=== PATIENT | male | born 1980 | race African-American/Black ===

== ENCOUNTER 2021-01-29 18:13 | Emergency (ER) | payer MEDICAID ==
[~2021-01-29] VITALS: Ht 180.3 cm; Wt 75.0 kg
[2021-01-29] MEDS ORDERED: ONDANSETRON HCL 4MG/2ML INJ IV STA (21:31)
[2021-01-29] MEDS ORDERED: MORPHINE SULFATE 4 MG/ML CPJ (NOT FOR IM USE) IV STA ×2 (21:31→22:57)
[2021-01-29 22:18] LABS: BASOPHILS % 0.5 % (0.0-2.0); EOSINOPHILS % 1.2 % (0.0-5.0); HEMATOCRIT. 35.5 % (42.0-52.0); HEMOGLOBIN. 11.6 g/dL (14.0-18.0); MEAN CORPUSCULAR HEMOGLOBIN 26.1 pg (28.0-32.0); MEAN CORPUSCULAR VOLUME 79.8 fL (80.0-94.0); MEAN PLATELET VOLUME 8.1 fl (7.4-10.4); MONOCYTES % 10.3 % (2.0-8.0); PLATELET 268 x1000/uL (130-400); RED BLOOD CELL COUNT 4.44 mill/uL (4.7-6.1); RED CELL DISTRIBUTION WIDTH 14.6 % (11.6-14.6)
[2021-01-29 22:22] LABS: CHLORIDE 106 mEq/L (98-107)
[2021-01-29 22:46] LABS: CLARITY URINE CLEAR (CLEAR); COLOR URINE YELLOW (YELLOW); KETONES URINE TRACE (NEGATIVE); LEUKOCYTE ESTERASE URINE NEGATIVE (NEGATIVE); NITRITE URINE NEGATIVE (NEGATIVE); OCCULT BLOOD URINE NEGATIVE (NEGATIVE); PH URINE 6.5 (4.5-8.0); PROTEIN URINE 1+ (NEGATIVE)
[2021-01-30] MEDS ORDERED: IBUP-2029 MT (01:19)
[2021-01-30] MEDS ORDERED: HYDR-4001 MT (01:19)
[2021-01-30 01:44] VITALS: BP 126/86
== END 2021-01-30 01:47 | disposition home or self-care (01) ==
LOC: ER 18:13
DX: R07.9 Chest pain, unspecified (principal)
CPT/HCPCS: 36415; 71045; 71275; 80053; 81003; 83880; 84484; 85025; 85379; 93005; 96374; 96375; 96376; 99285; J2270; J2405

== ENCOUNTER 2022-05-03 12:03 | Emergency (ER) | payer MEDICAID ==
[~2022-05-03] VITALS: Ht 175.3 cm; Wt 81.0 kg
[~2022-05-03 12:03] MED LIST: HYDR-4001 MT; IBUP-2029 MT
[2022-05-03 16:37] LABS: BASOPHILS % 1.5 % (0.0-2.0); EOSINOPHILS % 0.1 % (0.0-5.0); HEMATOCRIT. 36.1 % (42.0-52.0); HEMOGLOBIN. 11.8 g/dL (14.0-18.0); LYMPHOCYTES % 37.2 % (20.0-50.0); MEAN CORPUSCULAR HEMOGLOBIN 27.1 pg (28.0-32.0); MEAN CORPUSCULAR VOLUME 82.5 fL (80.0-94.0); MEAN PLATELET VOLUME 7.4 fl (7.4-10.4); MONOCYTES % 7.6 % (2.0-8.0); NEUTROPHILS % 53.6 % (40.0-76.0); PLATELET 288 x1000/uL (130-400); RED BLOOD CELL COUNT 4.38 mill/uL (4.7-6.1); RED CELL DISTRIBUTION WIDTH 15.9 % (11.6-14.6)
[2022-05-03 16:51] LABS: CHLORIDE 106 mEq/L (98-107)
[2022-05-03] MEDS ORDERED: TOPUD MT (17:14)
[2022-05-03 17:38] VITALS: BP 121/78
== END 2022-05-03 17:40 | disposition home or self-care (01) ==
LOC: ER 12:14
DX: K62.89 Other specified diseases of anus and rectum (principal); K62.5 Hemorrhage of anus and rectum; R56.9 Unspecified convulsions
CPT/HCPCS: 36415; 80053; 82270; 85025; 99283; Z7610